=== PATIENT | female | born 1965 | race American Indian/Alaskan Native ===

== ENCOUNTER 2016-11-29 08:44 | Outpatient (CLI) | payer MEDICARE ==
[2016-11-29] MEDS ORDERED: NACL ONE (09:58)
--- NOTE | 2016-11-29 11:43 | Cat Scan Report ---
CT of the abdomen with and without IV contrast and with oral contrast. History: Liver and pancreatic nodules, history of breast cancer. Findings: Comparison is made to a previous CT of the abdomen performed on March 10, 2015. Bilateral breast implants are noted. Surgical clips are noted in the right axilla. The liver is normal in size and configuration with no focal abnormalities. There is mild fatty infiltration of the liver, unchanged from the previous study. The spleen and pancreas are normal in size and configuration. There is no evidence of pancreatic mass. The gallbladder is unremarkable. The kidneys are normal in size and configuration with no evidence of mass or hydronephrosis. There is no adenopathy within the retroperitoneum. Impression: Hepatic steatosis, otherwise unremarkable study. No evidence of metastatic disease is seen.
== END 2016-11-29 08:45 | disposition home or self-care (01) ==
LOC: CT 08:44
DX: K76.0 Fatty (change of) liver, not elsewhere classified (principal); K76.89 Other specified diseases of liver; K86.89 Other specified diseases of pancreas; Z85.3 Personal history of malignant neoplasm of breast; Z98.82 Breast implant status
CPT/HCPCS: 74170; Q9967

== ENCOUNTER 2017-06-19 10:44 | Outpatient (CLI) | payer MEDICARE ==
--- NOTE | 2017-06-19 13:12 | XRay Report ---
ABDOMEN RADIOGRAPHS INDICATION: Abdominal pain. Sitz marker study. COMPARISON: None similar. FINDINGS: Frontal abdominal radiographs now demonstrate 2 sitz markers in the left hemiabdomen, possibly along the distal transverse colon. Mild to moderate transverse and descending colon stool/possible constipation. Nonobstructive bowel gas pattern. Few pelvic phleboliths. Lung bases incompletely imaged. Small left chest wall or breast surgical clip may also be noted. Lower lumbar degenerative changes. CONCLUSION: Findings, as above. Thank you for the opportunity to participate in this patient's care.
== END 2017-06-19 10:45 | disposition home or self-care (01) ==
LOC: XRAY 10:44
PROVIDERS: ATTEND Internal Medicine Gastroenterology
DX: R10.84 Generalized abdominal pain (principal); R19.4 Change in bowel habit; I87.8 Other specified disorders of veins; M47.896 Other spondylosis, lumbar region; I10 Essential (primary) hypertension; D64.9 Anemia, unspecified; F32.9 Major depressive disorder, single episode, unspecified
CPT/HCPCS: 74000

== ENCOUNTER 2020-06-01 09:56 | Outpatient (CLI) | payer MEDICARE ==
--- NOTE | 2020-06-02 10:38 | Mammography Report ---
DEXA BONE DENSITY SCAN INDICATION: DISORDER OF BONE AND CARTILAGE. COMPARISON: 05/28/2018 LUMBAR SPINE (L1-L4): Bone mineral density (BMD) is 1.03 g/cm2. T-score is -0.2 (standard deviations of Young Adult mean). Z-score is 0.9 (standard deviations of Age Matched mean). There has been a 1% decrease in bone mineral density in this region since 2018. LEFT FEMORAL NECK: Bone mineral density (BMD) is 0.81 g/cm2. T-score is -0.3 (standard deviations of Young Adult mean). Z-score is 0.7 (standard deviations of Age Matched mean). There has been a 4% decrease in bone mineral density in this region since 2018. IMPRESSION: 1. WHO Classification: Normal bone density. Fracture Risk: Not Increased. However, please note bone m ineral density has slightly decreased as above. Signer Name: Ronaldo Layne MD Signed: 06/02/2020 10:33 AM Workstation Name: [id number]
== END 2020-06-01 09:57 | disposition home or self-care (01) ==
LOC: SPVWC 09:56
PROVIDERS: ATTEND Internal Medicine Hematology & Oncology
DX: M89.9 Disorder of bone, unspecified (principal); M85.89 Other specified disorders of bone density and structure, multiple sites
CPT/HCPCS: 77080